=== PATIENT | female | born 1990 | race Two or more races ===

== ENCOUNTER 2018-02-06 19:01 | Emergency (ER) | payer OTHER ==
[~2018-02-06] VITALS: Ht 167.6 cm; Wt 57.2 kg
[2018-02-06 19:08] VITALS: Ht 167.6 cm; Wt 57.2 kg
[2018-02-06 20:48] VITALS: BP 95/53
== END 2018-02-06 20:48 | disposition home or self-care (01) ==
LOC: ED 19:01
DX: R51 Headache (principal); R11.2 Nausea with vomiting, unspecified
CPT/HCPCS: J1200; J2765; J7030